=== PATIENT | male | born 1980 | race Caucasian/White ===

== ENCOUNTER 2016-10-24 07:22 | Day surgery (SDC) | payer MEDICARE, OTHER ==
[~2016-10-24] VITALS: Ht 195.6 cm; Wt 104.1 kg
[~2016-10-24 07:22] MED LIST: DOCU250C91 PO; FLUC200T PO; FOLI1 PO; KETAMINE HCL 50 MG/ML 10 ML VIAL IVP ONE; LIDOCAINE HCL/PF 2% 5 ML VIAL IM ONE; METO25XL PO; METOCLOPRAMIDE HCL 5 MG/ML 2 ML VIAL IVP ONE; MIDAZOLAM HCL 2 MG/2 ML VIAL IVP ONE; ONDANSETRON HCL 4 MG/2 ML VIAL IVP ONE; PHENY100 PO; PHENYLEPHRINE HCL 10 MG/ML VIAL IVP ONE; PROPOFOL 1% 20 ML VIAL IVP ONE; SEVEC800 PO; SUCR500T PO
[2016-10-24] MEDS ORDERED: PROPOFOL 1000 MG/ISO-OSM 100 ML IV ONE (07:34)
[2016-10-24] MEDS ORDERED: SODIUM CHLORIDE 0.9% 1,000 ML IV ONE ×2 (07:51→11:00)
[2016-10-24] MEDS ORDERED: CeFAZolin 2 GM/DEXTROSE 50 ML IV ONE ×2 (07:53→11:00)
[2016-10-24] MEDS ORDERED: FentaNYL CITRATE-PF 100 MCG/2 ML VIAL IVP PRN (09:45)
[2016-10-24] MEDS ORDERED: OXYGEN THERAPY IH SCH (09:45)
[2016-10-24] MEDS ORDERED: POVIDONE-IODINE 30 GM OINTMENT TP ONE (10:15)
[2016-10-24] MEDS ORDERED: LIDOCAINE HCL/PF 1% 30 ML VIAL ONE (10:15)
== END 2016-10-24 14:50 | disposition home or self-care (01) ==
LOC: SURGERY 07:22
PROVIDERS: ATTEND Radiology Vascular & Interventional Radiology
DX: I13.11 Hypertensive heart and chronic kidney disease without heart failure, with stage 5 chronic kidney disease, or end stage renal disease (principal); N18.6 End stage renal disease; G40.909 Epilepsy, unspecified, not intractable, without status epilepticus; E66.9 Obesity, unspecified; I47.2 Ventricular tachycardia; E21.3 Hyperparathyroidism, unspecified; Z99.2 Dependence on renal dialysis; Z95.810 Presence of automatic (implantable) cardiac defibrillator
CPT/HCPCS: 36415; 36819; 84132; J0690 ×2; J2250; J2370; J2405; J2704 ×2; J2765; J3490 ×3; J7030

== ENCOUNTER 2017-01-09 06:59 | Day surgery (SDC) | payer MEDICARE, OTHER ==
[~2017-01-09] VITALS: Ht 191.8 cm; Wt 105.4 kg
[~2017-01-09 06:59] MED LIST changes: -DOCU250C91 PO; -FLUC200T PO; -FOLI1 PO; -KETAMINE HCL 50 MG/ML 10 ML VIAL IVP ONE; +LEVE250T55 PO; +LEVE500T53 PO; -LIDOCAINE HCL/PF 2% 5 ML VIAL IM ONE; -METO25XL PO; -METOCLOPRAMIDE HCL 5 MG/ML 2 ML VIAL IVP ONE; -MIDAZOLAM HCL 2 MG/2 ML VIAL IVP ONE; -ONDANSETRON HCL 4 MG/2 ML VIAL IVP ONE; -PHENY100 PO; -PHENYLEPHRINE HCL 10 MG/ML VIAL IVP ONE; -PROPOFOL 1% 20 ML VIAL IVP ONE; -SUCR500T PO
[2017-01-09] MEDS ORDERED: MIDAZOLAM HCL 2 MG/2 ML VIAL IVP ONE (07:00)
[2017-01-09] MEDS ORDERED: SODIUM CHLORIDE 0.9% 1,000 ML IV ONE ×2 (07:12→09:30)
[2017-01-09] MEDS ORDERED: CeFAZolin 2 GM/DEXTROSE 50 ML IV ONE ×2 (07:12→09:30)
[2017-01-09] MEDS ORDERED: FentaNYL CITRATE-PF 100 MCG/2 ML VIAL IVP PRN (07:45)
[2017-01-09] MEDS ORDERED: MEPERIDINE-PF 25 MG/ML SYRINGE IVP PRN (07:45)
[2017-01-09 07:52] LABS: BASOPHILS # (AUTO) 0.03 K/uL (0.00-0.20); BASOPHILS % (AUTO) 0.4 % (0.0-2.0); EOSINOPHILS % (AUTO) 1.55 % (1.0-6.0); HEMATOCRIT 32.4 % (41-53); HEMOGLOBIN 10.6 g/dL (13.5-17.5); LYMPHOCYTES # (AUTO) 1.9 K/uL (1.0-4.8); LYMPHOCYTES % (AUTO) 29.1 % (22.0-44.0); MEAN CORPUSCULAR HEMOGLOBIN 30.7 pg (26.0-34.0); MEAN CORPUSCULAR HGB CONC 32.7 G/dL (31.0-37.0); MEAN CORPUSCULAR VOLUME 94 fL (80-100); MONOCYTES # (AUTO) 0.4 K/uL (0.1-1.0); MONOCYTES % (AUTO) 6.4 % (2.0-9.0); NEUTROPHILS # (AUTO) 4.1 K/uL (1.8-7.7); NEUTROPHILS % (AUTO) 62.6 % (40.0-70.0); PLATELET COUNT (AUTO) 306 K/uL (150-450); RED BLOOD CELL COUNT(AUTO) 3.44 MIL/uL (4.50-5.90); RED CELL DISTRIBUTION WIDTH 18.1 % (11.5-14.5)
[2017-01-09 07:57] LABS: CALCIUM, TOTAL 9.4 mg/dL (8.8-10.5); CREATININE 12.86 mg/dL (0.60-1.30); POTASSIUM 4.5 mmol/L (3.5-5.1); PROTHROMBIN TIME 10.9 SEC (9.4-11.6)
[2017-01-09] MEDS ORDERED: OXYGEN THERAPY IH SCH (08:00)
[2017-01-09] MEDS ORDERED: BACITRACIN 28.4 GM OINTMENT TP ONE (08:58)
[2017-01-09] MEDS ORDERED: LIDOCAINE HCL/PF 1% 30 ML VIAL ONE (08:58)
[2017-01-09] MEDS ORDERED: KETAMINE HCL 50 MG/ML 10 ML VIAL ONE (09:07)
[2017-01-09] MEDS ORDERED: BUPIVACAINE 0.25%/EPI 1:200,000/PF 10 ML VIAL ONE (09:46)
[2017-01-09] MEDS ORDERED: SODIUM CHLORIDE 0.9% 30 ML ONE (10:16)
[2017-01-09] MEDS ORDERED: PROPOFOL 1% 20 ML VIAL IVP ONE (12:00)
[2017-01-09] MEDS ORDERED: EPHEDrine SULFATE 50 MG/ML VIAL IM ONE (12:00)
[2017-01-09] MEDS ORDERED: METOCLOPRAMIDE HCL 5 MG/ML 2 ML VIAL IVP ONE (12:00)
[2017-01-09] MEDS ORDERED: ONDANSETRON HCL 4 MG/2 ML VIAL IVP ONE (12:00)
[2017-01-09] MEDS ORDERED: DEXAMETHASONE SOD PHOS 4 MG/ML VIAL IVP ONE (12:00)
[2017-01-09] MEDS ORDERED: LIDOCAINE HCL/PF 2% 5 ML VIAL INJ ONE (12:00)
[2017-01-09] MEDS ORDERED: HEPARIN SODIUM,PORCINE 1,000 UNITS/ML 10 ML VIAL IVP ONE (12:00)
[2017-01-09] MEDS ORDERED: GLYCOPYRROLATE 0.2 MG/ML VIAL IM ONE (12:00)
== END 2017-01-09 12:10 | disposition home or self-care (01) ==
LOC: SURGERY 06:59
PROVIDERS: ATTEND Radiology Vascular & Interventional Radiology
DX: T82.590A Other mechanical complication of surgically created arteriovenous fistula, initial encounter (principal); I12.0 Hypertensive chronic kidney disease with stage 5 chronic kidney disease or end stage renal disease; N18.6 End stage renal disease; D63.1 Anemia in chronic kidney disease; B38.0 Acute pulmonary coccidioidomycosis; E21.3 Hyperparathyroidism, unspecified; I42.9 Cardiomyopathy, unspecified; Z95.810 Presence of automatic (implantable) cardiac defibrillator; Z98.890 Other specified postprocedural states; Z99.2 Dependence on renal dialysis; Y83.2 Surgical operation with anastomosis, bypass or graft as the cause of abnormal reaction of the patient, or of later complication, without mention of misadventure at the time of the procedure; Y92.9 Unspecified place or not applicable
CPT/HCPCS: 36415; 36832; 80048; 85025; 85610; 85730; 93005; C1768; J0690; J1100; J1644; J2250; J2405; J2704; J2765; J3490 ×5; J7030

== ENCOUNTER 2017-02-13 09:17 | Day surgery (SDC) | payer MEDICARE, OTHER ==
[~2017-02-13] VITALS: Ht 190.5 cm; Wt 108.2 kg
[~2017-02-13 09:17] MED LIST changes: +CeFAZolin 2 GM/DEXTROSE 50 ML IV ONE; +SODIUM CHLORIDE 0.9% 1,000 ML IV ONE; +SODIUM CHLORIDE 0.9% 1,000 ML IV SCH
[2017-02-13] MEDS ORDERED: EPHEDrine SULFATE 50 MG/ML VIAL IM ONE (09:18)
[2017-02-13] MEDS ORDERED: GLYCOPYRROLATE 0.2 MG/ML VIAL IM ONE (09:18)
[2017-02-13] MEDS ORDERED: METOCLOPRAMIDE HCL 5 MG/ML 2 ML VIAL IVP ONE (09:18)
[2017-02-13] MEDS ORDERED: MIDAZOLAM HCL 2 MG/2 ML VIAL IVP ONE (09:18)
[2017-02-13] MEDS ORDERED: LIDOCAINE HCL/PF 2% 5 ML VIAL IM ONE (09:18)
[2017-02-13] MEDS ORDERED: ONDANSETRON HCL 4 MG/2 ML VIAL IVP ONE (09:18)
[2017-02-13] MEDS ORDERED: PROPOFOL 1000 MG/ISO-OSM 100 ML IV ONE (09:49)
[2017-02-13] MEDS ORDERED: MEPERIDINE-PF 25 MG/ML SYRINGE IVP PRN (10:00)
[2017-02-13] MEDS ORDERED: OXYGEN THERAPY IH SCH (10:00)
[2017-02-13] MEDS ORDERED: HYDROmorphone 2 MG/ML SYRINGE IVP PRN (10:00)
[2017-02-13] MEDS ORDERED: FentaNYL CITRATE-PF 100 MCG/2 ML VIAL IVP PRN (10:00)
[2017-02-13 10:28] LABS: CALCIUM, TOTAL 9.1 mg/dL (8.8-10.5); CREATININE 13.95 mg/dL (0.60-1.30); POTASSIUM 4.9 mmol/L (3.5-5.1)
[2017-02-13] MEDS ORDERED: METO25XL PO (10:36)
[2017-02-13 10:38] LABS: BASOPHILS % (AUTO) 0.4 % (0.0-2.0); EOSINOPHILS % (AUTO) 1.5 % (1.0-6.0); HEMOGLOBIN 9.7 g/dL (13.5-17.5); LYMPHOCYTES # (AUTO) 1.1 K/uL (1.0-4.8); LYMPHOCYTES % (AUTO) 21.8 % (22.0-44.0); MEAN CORPUSCULAR HEMOGLOBIN 29.5 pg (26.0-34.0); MEAN CORPUSCULAR HGB CONC 33.3 G/dL (31.0-37.0); MEAN CORPUSCULAR VOLUME 88 fL (80-100); MONOCYTES # (AUTO) 0.4 K/uL (0.1-1.0); MONOCYTES % (AUTO) 7.2 % (2.0-9.0); NEUTROPHILS # (AUTO) 3.5 K/uL (1.8-7.7); NEUTROPHILS % (AUTO) 69.1 % (40.0-70.0); PLATELET COUNT (AUTO) 200 K/uL (150-450); RED BLOOD CELL COUNT(AUTO) 3.28 MIL/uL (4.50-5.90); WHITE BLOOD COUNT (AUTO) 5.1 K/uL (4.5-11.0)
[2017-02-13 10:43] LABS: RBC MORPHOLOGY COMMENT ABNORMAL RBC MORPH
[2017-02-13 10:52] LABS: PROTHROMBIN TIME 10.7 SEC (9.4-11.6)
[2017-02-13] MEDS ORDERED: HEPARIN SODIUM 1000 UNITS/NS 500 ML ONE (11:10)
[2017-02-13] MEDS ORDERED: LIDOCAINE HCL/PF 1% 30 ML VIAL ONE (11:10)
[2017-02-13] MEDS ORDERED: BACITRACIN 28.4 GM OINTMENT TP ONE (12:46)
== END 2017-02-13 14:00 | disposition home or self-care (01) ==
LOC: SURGERY 09:17
PROVIDERS: ATTEND Radiology Vascular & Interventional Radiology
DX: T82.590A Other mechanical complication of surgically created arteriovenous fistula, initial encounter (principal); I12.0 Hypertensive chronic kidney disease with stage 5 chronic kidney disease or end stage renal disease; N18.6 End stage renal disease; E21.3 Hyperparathyroidism, unspecified; E78.00 Pure hypercholesterolemia, unspecified; I42.9 Cardiomyopathy, unspecified; E66.9 Obesity, unspecified; Z99.2 Dependence on renal dialysis; Z95.0 Presence of cardiac pacemaker; Y83.2 Surgical operation with anastomosis, bypass or graft as the cause of abnormal reaction of the patient, or of later complication, without mention of misadventure at the time of the procedure; Y92.9 Unspecified place or not applicable
CPT/HCPCS: 36415; 36833; 80048; 85025; 85610; 85730; 88304; 93005; C1757 ×2; C1768; J0690 ×2; J1644; J2405; J2704; J2765; J3490 ×4; J7030; J2250